=== PATIENT | female | born 1990 | race Caucasian/White ===

== ENCOUNTER 2019-01-15 15:01 | Emergency (ER) | payer BC ==
[~2019-01-15] VITALS: Ht 165.1 cm; Wt 129.3 kg
[2019-01-15 15:12] VITALS: Ht 165.1 cm; Wt 129.3 kg
[2019-01-15 15:48] LABS: CALCIUM 8.7 mg/dL (8.5-10.1); CARBON DIOXIDE 26.5 mmol/L (21-32); CHLORIDE SERUM 105 mmol/L (98-107); CREATININE SERUM 0.7 mg/dL (0.6-1.0); GFR1 > 60 mL/min; GLUCOSE SERUM 89 mg/dL (74-106); POTASSIUM SERUM 3.8 mmol/L (3.5-5.1); SODIUM SERUM 142 mmol/L (136-145)
[2019-01-15 15:54] LABS: ALBUMIN 3.1 g/dL (3.4-5.0); ALKALINE PHOSPHATASE 71 U/L (46-116); ALT/SGPT 22 U/L (14-59); AST/SGOT 11 U/L (15-37); BILIRUBIN TOTAL 0.2 mg/dL (0.20-1.00)
[2019-01-15 16:00] LABS: PLATELET COUNT 448 x10^3mcL (130-400); RED CELL DISTRIBUTION WIDTH 17.3 % (11.5-14.5)
[2019-01-15 18:27] VITALS: BP 136/85
== END 2019-01-15 18:26 | disposition home or self-care (01) ==
LOC: ED 15:01
PROVIDERS: Emergency Medicine
DX: J40 Bronchitis, not specified as acute or chronic (principal)
CPT/HCPCS: 36415; 85378; 87804; J1100; J7613; J7620; Q0092

== ENCOUNTER 2019-11-06 08:33 | Emergency (ER) | payer BC ==
[~2019-11-06] VITALS: Ht 165.1 cm; Wt 125.2 kg
[2019-11-06 08:40] VITALS: Ht 165.1 cm; Wt 125.2 kg
[2019-11-06 09:09] LABS: BASOPHIL % 0.1 % (0-2); PLATELET COUNT 385 x10^3mcL (130-400); RED CELL DISTRIBUTION WIDTH 16.9 % (11.5-14.5)
[2019-11-06 10:53] LABS: CARBON DIOXIDE 24.8 mmol/L (21-32); CHLORIDE SERUM 105 mmol/L (98-107); CREATININE SERUM 0.9 mg/dL (0.6-1.0); GFR1 > 60 mL/min; GLUCOSE SERUM 104 mg/dL (74-106); POTASSIUM SERUM 4.1 mmol/L (3.5-5.1); SODIUM SERUM 140 mmol/L (136-145); TOTAL PROTEIN, SERUM 7.1 g/dL (6.4-8.2)
[2019-11-06 10:54] LABS: ALKALINE PHOSPHATASE 56 U/L (46-116); ALT/SGPT 26 U/L (14-59); AST/SGOT 11 U/L (15-37); BILIRUBIN TOTAL 0.2 mg/dL (0.20-1.00)
[2019-11-06 10:56] LABS: ALBUMIN 3.1 g/dL (3.4-5.0)
[2019-11-06 11:05] VITALS: BP 122/65
== END 2019-11-06 11:24 | disposition home or self-care (01) ==
LOC: ED 08:33
PROVIDERS: Emergency Medicine
DX: R55 Syncope and collapse (principal)
CPT/HCPCS: 36415